=== PATIENT | female | born 1995 | race Two or more races ===

== ENCOUNTER → 2023-09-05 | Outpatient (CLI) | payer BC ==
[2023-09-05 15:34] LABS: Basophils # (auto) 0.1 10 ^3/uL (0-0.2); Basophils % (auto) 0.7 % (0.0-2.0); Eosinophils # (auto) 0.1 10 ^3/uL (0-0.8); Eosinophils % (auto) 0.9 % (0.0-7.0); Hematocrit 40.2 % (36.0-46.0); Hemoglobin 13.6 g/dL (12.2-16.2); Lymphocytes # (auto) 1.4 10 ^3/uL (0.4-5.4); Lymphocytes % (auto) 16.8 % (10.0-50.0); Mean Corpuscular Hemoglobin 29.3 pg (28.0-32.0); Mean Corpuscular Hgb Conc. 33.9 g/dL (32.0-36.0); Mean Corpuscular Volume 86.5 fL (80.0-100.0); Monocytes # (auto) 0.4 10 ^3/uL (0-1.3); Monocytes % (auto) 5.3 % (0.0-12.0); Neutrophils # (auto) 6.2 10 ^3/uL (1.6-8.6); Neutrophils % (auto) 76.3 % (37.0-80.0); Red Blood Cells 4.64 10^6/uL (4.0-5.20); Red Cell Distribution Width 13.5 % (11.8-14.3); White Blood Cell 8.2 10^3/uL (4.4-10.8)
[2023-09-05 16:37] LABS: Amphetamine Screen, Urine Neg (NEGATIVE); Benzodiazephine Screen, Urine Neg (NEGATIVE)
[2023-09-05 16:38] LABS: Barbiturate Scree,Urine Neg (NEGATIVE); Cannabinoid Screen, Urine Neg (NEGATIVE); Cocaine Screen, Urine Neg (NEGATIVE); Opiate Scree,Urine Neg (NEGATIVE); Phencyclidine Screen, Urine Neg (NEGATIVE)
[2023-09-05 16:43] LABS: Alanine Aminotransferase 30 U/L (7-40); Albumin 4.9 g/dL (3.2-4.8); Alkaline Phosphatase 63 U/L (46-116); Anion Gap 8 (5-15); Aspartate Aminotransferase 13 U/L (13-40); Bilirubin, Total 0.5 mg/dL (0.2-1.0); Calcium 9.9 mg/dL (8.5-10.1); Carbon Dioxide 23 mmol/L (20-30); Chloride 104 mmol/L (98-107); Cholesterol 201 mg/dL (< 200); Glucose 83 mg/dL (74-106); HDL Cholesterol 65 mg/dL (40-59); LDL Cholesterol 132 mg/dL (< 100); Potassium 3.8 mmol/L (3.5-5.1); Sodium 135 mmol/L (136-145); Thyroid Stimulating Hormone 0.69 uIU/mL (0.358-3.74); Total Protein 7.6 g/dL (5.7-8.2); Triglycerides 102 mg/dL (< 150)
[2023-09-05 16:44] LABS: BUN/Creatinine Ratio 8.6 (10.0-20.0); Blood Urea Nitrogen < 5 mg/dL (9-23)
[2023-09-05 16:51] LABS: Beta HCG, Quantitative 53507.1 mIU/mL (1.5-4.2)
[2023-09-06 07:06] LABS: RPR Non Reactive (Non Reactive)
[2023-09-06 11:07] LABS: Varicella Zoster IgG Antibody 658 index (Immune >165)
[2023-09-06 13:07] LABS: Chlamydia Trachomatis, NAA Negative (Negative); Neisseria gonorrhoeae, NAA Negative (Negative)
[2023-09-07 14:06] LABS: QuantiFERON-TB Gold Plus Negative (Negative)
== END | disposition home or self-care (01) ==
LOC: LAB 15:01
PROVIDERS: ATTEND Obstetrics & Gynecology
DX: Z34.80 Encounter for supervision of other normal pregnancy, unspecified trimester (principal); Z31.430 Encounter of female for testing for genetic disease carrier status for procreative management; N39.0 Urinary tract infection, site not specified; Z36.0 Encounter for antenatal screening for chromosomal anomalies
CPT/HCPCS: 36415; 80053; 80061; 80307; 83036; 84439; 84443; 84702; 85025; 86592; 86703; 86706; 86762; 86787; 86850; 86900; 86901; 87086; 87902

== ENCOUNTER → 2024-01-02 | Outpatient (CLI) | payer BC ==
[2024-01-02 08:31] LABS: Basophils # (auto) 0 10 ^3/uL (0-0.2); Basophils % (auto) 0.4 % (0.0-2.0); Eosinophils # (auto) 0.1 10 ^3/uL (0-0.8); Eosinophils % (auto) 1.6 % (0.0-7.0); Hematocrit 36.4 % (36.0-46.0); Hemoglobin 12.3 g/dL (12.2-16.2); Lymphocytes # (auto) 1.5 10 ^3/uL (0.4-5.4); Lymphocytes % (auto) 23.2 % (10.0-50.0); Mean Corpuscular Hemoglobin 30.2 pg (28.0-32.0); Mean Corpuscular Hgb Conc. 33.8 g/dL (32.0-36.0); Mean Corpuscular Volume 89.3 fL (80.0-100.0); Monocytes # (auto) 0.4 10 ^3/uL (0-1.3); Monocytes % (auto) 6.2 % (0.0-12.0); Neutrophils # (auto) 4.4 10 ^3/uL (1.6-8.6); Neutrophils % (auto) 68.6 % (37.0-80.0); Nucleated Red Blood Cells % 0.1 %; Platelet Count (auto) 201 10^3/uL (140-450); Red Blood Cells 4.07 10^6/uL (4.0-5.20); Red Cell Distribution Width 14.8 % (11.8-14.3); White Blood Cell 6.4 10^3/uL (4.4-10.8)
[2024-01-02 08:41] LABS: Alanine Aminotransferase 17 U/L (7-40); Albumin 3.9 g/dL (3.2-4.8); Alkaline Phosphatase 80 U/L (46-116); Anion Gap 7 (5-15); Aspartate Aminotransferase 13 U/L (13-40); BUN/Creatinine Ratio 16.3 (10.0-20.0); Blood Urea Nitrogen 8 mg/dL (9-23); Calcium 9.4 mg/dL (8.7-10.4); Carbon Dioxide 24 mmol/L (20-31); Chloride 108 mmol/L (98-107); Glucose 92 mg/dL (74-106); Potassium 3.8 mmol/L (3.5-5.1); Sodium 139 mmol/L (136-145)
[2024-01-02 08:42] LABS: Bilirubin, Total 0.4 mg/dL (0.2-1.0); Total Protein 6.5 g/dL (5.7-8.2)
[2024-01-03 06:06] LABS: RPR Non Reactive (Non Reactive)
[2024-01-03 11:07] LABS: Chlamydia Trachomatis, NAA Negative (Negative); Neisseria gonorrhoeae, NAA Negative (Negative)
== END | disposition home or self-care (01) ==
LOC: LAB 08:00
PROVIDERS: ATTEND Obstetrics & Gynecology
DX: Z34.80 Encounter for supervision of other normal pregnancy, unspecified trimester (principal)
CPT/HCPCS: 36415; 80053; 82951; 83036; 85025; 86592; 86850; 86900; 86901

== ENCOUNTER 2024-03-24 08:41 | Inpatient (IN) | payer BC, OTHER ==
[~2024-03-24] VITALS: Ht 154.9 cm; Wt 81.2 kg
[2024-03-24] MEDS ORDERED: LIDOCAINE 2%HCL (LOCAL ANESTH.) INJ 20ML MDV IJ PRN (09:15)
[2024-03-24] MEDS ORDERED: TERBUTALINE SULFATE 1 MG/ML 1ML VIAL SC PRN (09:15)
[2024-03-24] MEDS ORDERED: NALBUPHINE HCL 10 MG/1ml INJECTION IV PRN (09:15)
--- NOTE | 2024-03-24 09:43 | DVHHP ---
ADMIT DATE: 03/24/2024 CHIEF COMPLAINT: Rupture of membranes. HISTORY OF PRESENT ILLNESS: The patient is a 28-year-old 3 para 1 with due date 04/04/2024, estimated gestational age of 38 weeks, admitted for spontaneous rupture of membranes, clear fluid, no vaginal bleeding. PAST MEDICAL HISTORY: None. PAST SURGICAL HISTORY: None. SOCIAL HISTORY: None. FAMILY HISTORY: None. ALLERGIES: No known drug allergies. OBSTETRIC/GYNECOLOGIC HISTORY: One normal vaginal delivery. REVIEW OF SYSTEMS: Consistent with HPI. PHYSICAL EXAMINATION: VITAL SIGNS: Stable, afebrile. HEENT: Within normal limits. CARDIOVASCULAR: Regular rate and rhythm. LUNGS: Clear to auscultation. BREASTS: Symmetrical. No masses. ABDOMEN: Gravid. Positive heart. PELVIC: 3 cm, , -2, clear fluid. EXTREMITIES: No clubbing, cyanosis, or edema. IMPRESSION: Intrauterine at 38 weeks with spontaneous rupture of membranes. PLAN: Start antibiotic. Start Pitocin. Expectant vaginal delivery. Informed consent obtained. DO JCARLOS Cabrera/TAN/NE TID: [id number] RECEIPT: [id number]
[2024-03-24 09:55] LABS: Urine Bacteria None Seen /hpf (None Seen)
[2024-03-24 10:22] LABS: Urine Blood Negative /uL (Negative); Urine Clarity Turbid (Clear); Urine Color Yellow (Yellow); Urine Protein, UAD TRACE (Negative); Urine Specific Gravity 1.015 (1.001-1.035); Urine Squamous Epithelial Cell FEW /hpf (<5); Urine Urobilinogen Normal (Negative); Urine WBC 5 /hpf (0 - 5)
[2024-03-24 10:28] LABS: Albumin 4.1 g/dL (3.2-4.8); Anion Gap 11 (5-15); BUN/Creatinine Ratio 11.1 (10.0-20.0); Bilirubin, Total 0.4 mg/dL (0.2-1.0); Calcium 9.9 mg/dL (8.7-10.4); Chloride 106 mmol/L (98-107); Sodium 136 mmol/L (136-145); Total Protein 6.6 g/dL (5.7-8.2)
[2024-03-24 10:32] LABS: Alanine Aminotransferase < 9 U/L (7-40); Alkaline Phosphatase 207 U/L (46-116); Aspartate Aminotransferase < 8 U/L (13-40); Basophils # (auto) 0 10 ^3/uL (0-0.2); Basophils % (auto) 0.4 % (0.0-2.0); Blood Urea Nitrogen 7 mg/dL (9-23); Carbon Dioxide 19 mmol/L (20-31); Eosinophils # (auto) 0 10 ^3/uL (0-0.8); Eosinophils % (auto) 0.4 % (0.0-7.0); Glucose 129 mg/dL (74-106); Hemoglobin 12.4 g/dL (12.2-16.2); Lymphocytes # (auto) 1.2 10 ^3/uL (0.4-5.4); Lymphocytes % (auto) 14.2 % (10.0-50.0); Mean Corpuscular Hemoglobin 30.7 pg (28.0-32.0); Mean Corpuscular Hgb Conc. 34.5 g/dL (32.0-36.0); Mean Corpuscular Volume 89.1 fL (80.0-100.0); Monocytes # (auto) 0.3 10 ^3/uL (0-1.3); Monocytes % (auto) 3.9 % (0.0-12.0); Neutrophils # (auto) 6.8 10 ^3/uL (1.6-8.6); Neutrophils % (auto) 81.1 % (37.0-80.0); Platelet Count (auto) 208 10^3/uL (140-450); Potassium 3.2 mmol/L (3.5-5.1); Red Blood Cells 4.04 10^6/uL (4.0-5.20); Red Cell Distribution Width 14.5 % (11.8-14.3); White Blood Cell 8.4 10^3/uL (4.4-10.8)
[2024-03-24 10:32] LABS: Amphetamine Screen, Urine Neg (NEGATIVE); Barbiturate Scree,Urine Neg (NEGATIVE); Benzodiazephine Screen, Urine Neg (NEGATIVE); Cannabinoid Screen, Urine Neg (NEGATIVE); Cocaine Screen, Urine Neg (NEGATIVE); Opiate Scree,Urine Neg (NEGATIVE); Phencyclidine Screen, Urine Neg (NEGATIVE)
[2024-03-24] MEDS: ceFAZolin 1GM/50ML 50 ML IV SCH (10:33)
[2024-03-24] MEDS: LACTATED RINGER'S 1,000 ML IV SCH (10:34)
[2024-03-24 10:36] LABS: INR 0.9 (0.9-1.15); Partial Thromboplastin Time 30.1 SEC (24.5-34.5); Prothrombin Time 9.6 sec (9.3-11.8)
[2024-03-24] MEDS: LACT. RINGERS/OXYTOCIN 20UNITS 1,000 ML IV SCH (12:21)
[2024-03-24] MEDS ORDERED: ePHEDrine SULFATE 50 MG/ML AMP IV ONE (13:15)
[2024-03-24] MEDS: LIDOCAINE HCL 2 %PF INJ 10ML AMP IJ ONE (13:15)
[2024-03-24] MEDS ORDERED: NALOXONE HCL 0.4 MG/ML VIAL IV ONE (13:15)
[2024-03-24] MEDS ORDERED: LIDOCAINE HCL 2 %PF INJ 10ML AMP IJ ONE (13:19)
[2024-03-24] MEDS ORDERED: ePHEDrine SULFATE 50 MG/ML AMP ONE (13:21)
[2024-03-24] MEDS: ROPIVACAINE HCL 200 ML ONE (16:54)
[2024-03-24] MEDS: DERMOPLAST 60ML BOTTLE TOP PRN (17:46)
[2024-03-24] MEDS: PHISODERM TOP SOLN 240ML BTL TOP PRN (17:47)
[2024-03-24] MEDS: WITCH HAZEL-GLYCERIN PAD TOP PRN (17:47)
--- NOTE | 2024-03-24 18:08 | DVHPN2 ---
Chief Complaints Patient reports: No new complaints Nursing reports: No new complaints Objective Medications Current Medications Medications (Trade) Dose Ordered Sig/Murali Route PRN Reason Start Time Stop Time Status Last Admin Benzocaine (Dermoplast) 1 applic PRN PRN TOP PERINEAL AREA DISCOMFORT 03/24/24 09:15 03/24/24 17:46 Cefazolin Sodium 50 ml @ 100 mls/hr Q8HR IV 03/24/24 09:30 03/24/24 10:33 Lactated Ringer's 1,000 ml @ 125 mls/hr Q8H IV 03/24/24 09:15 03/24/24 10:34 Lidocaine HCl (Xylocaine) 20 ml ONCE PRN IJ PERINEAL AREA DISCOMFORT 03/24/24 09:15 Nalbuphine HCl (Nubain) 10 mg Q4HP PRN IV MODERATE PAIN (4-6 PAIN SCALE) 03/24/24 09:15 Oxytocin 1,000 ml @ 6 ml/hr Q24H IV 03/24/24 09:15 03/24/24 12:21 Sodium Lauryl Sulfate (Phisoderm) 240 ml PRN PRN TOP PERINEAL AREA DISCOMFORT 03/24/24 09:15 03/24/24 17:47 Terbutaline Sulfate (Brethine Inj) 0.25 mg ONCE PRN SC Uterine tachysystole 03/24/24 09:15 Fiona Brewer (Adoniscks) 1 pad PRN PRN TOP PERINEAL AREA DISCOMFORT 03/24/24 09:15 03/24/24 17:47 Others ve-10cm/0 Studies Laboratory Tests 03/24/24 09:35 Test 03/24/24 09:35 Range/Units Serum Glucose 129 H 74-106 mg/dL Ass/Plan Assessment active labor Plan start pushing MARSHALL SANDOVAL Mar 24, 2024 18:08
[2024-03-24] MEDS: LACT. RINGERS/OXYTOCIN 20UNITS 500 ML IV ONE ×2 (18:28→19:55)
--- NOTE | 2024-03-24 18:41 | LDN2 ---
Labor and Delivery Note Date 03/24/24 Age 28 3 Para 2 AB 1 EDC 1-29 EGA 38WKS Diagnosis SROM Vaginal Delivery: VTX Vacuum Assisted: No Placenta: Spontaneous Sex: Female Apgars 9-9 Nuchal Cord Transected: No Amniotic Fluid: Clear Anesthesia EPIDURAL Episiotomy: No Extension: Yes (2ND DGE PERINEAL LAC) Repaired with 2-0 CHROMIC EBL 300ML Labs Laboratory Tests 03/24/24 09:35: Hepatitis B Surface Antigen Negative 09/05/23 15:20: HIV (1&2) Antibody Negative, Rubella Antibody Positive Blood Bank 03/24/24 09:35: Blood Type O POSITIVE Complications NONE Conditions STABLE Comments/Significant Med Qian SPEC EXAM NO CXAL LAC MARSHALL SANDOVAL DO Mar 24, 2024 18:41
[2024-03-24] MEDS ORDERED: ACETAMINOPHEN 325 MG TAB PO PRN (21:00)
[2024-03-24] MEDS ORDERED: ONDANSETRON HCL 4 MG/2 ML VIAL IV PRN (21:00)
[2024-03-24] MEDS ORDERED: DOCUSATE SOD 100 MG CAP PO SCH (22:00)
[2024-03-24 23:00] VITALS: BP 102/68; PULSE 74; RESP 18; TEMP 98.2; O2SAT 97
[2024-03-25 03:00] VITALS: BP 108/68; PULSE 68; RESP 18; TEMP 98.2; O2SAT 97
[2024-03-25 06:30] VITALS: BP 110/69; PULSE 67; RESP 17; TEMP 98.1; O2SAT 97
--- NOTE | 2024-03-25 07:29 | DVHPN2 ---
Progress Note Date Seen: Mar 25, 2024 Subjective S: Lochia minimal, fundus firm at U-1. Tolerating regular diet well. Ambulating and voiding well w/o feeling lightheaded or dizzy. Passing flatus but no BM yet. Breast feeding. Desires and requests to be discharged home today vital signs Vital Sign Date Time Temp Pulse Resp B/P (MAP) Pulse Ox O2 Delivery O2 Flow Rate FiO2 03/25/24 03:00 98.2 68 18 108/68 (81) 97 98.2 03/24/24 20:40 Room Air Total Intake and Output 03/24/24 03/24/24 03/25/24 15:00 23:00 07:00 Output Total 1150 ml 800 ml Balance -1150 ml -800 ml medications Current Medications Medications Dose Ordered Sig/Murali Route Start Time Stop Time Status Last Admin Dose Admin Fiona Daniella 1 pad PRN PRN TOP 03/24/24 09:15 03/24/24 17:47 1 PAD Sodium Lauryl Sulfate 240 ml PRN PRN TOP 03/24/24 09:15 03/24/24 17:47 240 ML Benzocaine 1 applic PRN PRN TOP 03/24/24 09:15 03/24/24 17:46 1 APPLIC Lidocaine HCl 20 ml ONCE PRN IJ 03/24/24 09:15 Acetaminophen 650 mg Q4HP PRN PO 03/24/24 21:00 Ondansetron HCl 4 mg Q4HP PRN IV 03/24/24 21:00 Docusate Sodium 200 mg HS PO 03/24/24 22:00 laboratory and microbiology Laboratory Tests 03/24/24 09:35 Test 03/24/24 09:35 Range/Units Serum Glucose 129 H 74-106 mg/dL Objective A&O x3 NAD. Afebrile, VSS Chest: heart and lung sounds normal. Breasts: Nipples intact w/o cracks or soreness Abdomen: normal BS, soft, non-tender, no rebound or guarding, fundus firm @ U- 1, Perineum:- no edema, or erythema, Incision / laceration site with sutures intact, edges in good approximation. Extremities: no edema or tenderness Lochia - minimal Labs Assessment/Plan A/P 28yo now ppd#1_ s/p doing well. Blood Type: O Rh: Positive Breast feeding Rubella: Immune Pain control with oral medications Bowel regimen: Increase fluid intake and fiber in diet, Laxative PRN Discharge plan: May discharge home later today if condition remains stable Plan discussed with: Patient, Spouse DAVIDSON SUMMERS CNM Mar 25, 2024 07:29
--- NOTE | 2024-03-25 07:32 | DVHDS2 ---
Obstetrics Discharge Summary Obstetrics Discharge Summary Date of Admission: Mar 24, 2024 Date of Discharge: Mar 25, 2024 Reason For Admission: PROM Procedures: None Intrapartum Procedures: Spontaneous vaginal deliv Procedures: None, Hct/date: (36.0% on 03/24/24), Hgb/date: (12.4g/dL on 03/24/24) Operative Complicat: None Discharge Diagnosis: Term -Delivered Discharge Information: Activity (Unrestricted. Advance as tolerated. No heavy lifting, pushing or straining. Pelvic rest x 6weeks), Diet (Routine regular diet rich in fiber, protein, iron and vitamin C with adequate fluid intake.), Medications (Ibuprofen 600mg every 6 hours as needed for pain. Continue Vitamin and iron), Instructions ( self care instructions given. emergency signs and symptoms including pre-eclampsia precautions and signs of PPD reviewed with patient. Follow up with OB Provider in 1 week), Discharge to (Home), Discarge date (03/25/2024) DAVIDSON SUMMERS CNM Mar 25, 2024 07:32
[2024-03-25 11:00] VITALS: BP 96/67; PULSE 84; RESP 17; TEMP 98.3; O2SAT 97
[2024-03-25 15:22] VITALS: BP 97/50; PULSE 96; RESP 17; TEMP 98.6; O2SAT 97
[2024-03-25 18:30] VITALS: BP 110/64; PULSE 96; RESP 16; O2SAT 100
[2024-03-27 04:06] LABS: RPR Non Reactive (Non Reactive)
== END 2024-03-25 19:34 | disposition home or self-care (01) | DRG 807 ==
LOC: LDRP 08:41 → OBSVTOIN 09:04 → LDRP 09:04
PROVIDERS: ADMIT Obstetrics & Gynecology; ATTEND Obstetrics & Gynecology
PROC: 10E0XZZ Delivery of Products of Conception, External Approach (ICD-10-PCS; principal; 2024-03-24)
PROC: 0KQM0ZZ Repair Perineum Muscle, Open Approach (ICD-10-PCS; 2024-03-24)
PROC: 3E0R3BZ Introduction of Anesthetic Agent into Spinal Canal, Percutaneous Approach (ICD-10-PCS; 2024-03-24)
PROC: 00HU33Z Insertion of Infusion Device into Spinal Canal, Percutaneous Approach (ICD-10-PCS; 2024-03-24)
DX: O70.1 Second degree perineal laceration during delivery (principal); Z37.0 Single live birth; Z3A.38 38 weeks gestation of pregnancy
CPT/HCPCS: 36415; 59025; 59409; 62282; 80053; 80307; 81001; 85025; 85610; 85730; 86592; 86780; 86803; 86850; 86900; 86901; 87340; 94762; 96360; 96366; G0378; J2590